=== PATIENT | male | born 1945 | race African-American/Black ===

== ENCOUNTER 2017-12-11 08:59 | Emergency (ER) | payer SELFPAY ==
[~2017-12-11] VITALS: Ht 165.1 cm; Wt 65.8 kg
[2017-12-11] MEDS ORDERED: METHYLPREDNISOLONE SOD SUCC 125 MG/2 ML VIAL IV STA (09:19)
[2017-12-11 09:41] LABS: BASOPHILS % 0.6 % (0.0-2.0); HEMATOCRIT. 40.4 % (42.0-52.0); HEMOGLOBIN. 13.4 g/dL (14.0-18.0); LYMPHOCYTES % 27.1 % (20.0-50.0); MEAN CORPUSCULAR HEMOGLOBIN 29.4 pg (28.0-32.0); MEAN CORPUSCULAR VOLUME 88.4 fL (80.0-94.0); MEAN PLATELET VOLUME 9.1 fl (7.4-10.4); MONOCYTES % 8.9 % (2.0-8.0); NEUTROPHILS % 62.4 % (40.0-76.0); PLATELET 216 x1000/uL (130-400); RED BLOOD CELL COUNT 4.57 mill/uL (4.7-6.1); RED CELL DISTRIBUTION WIDTH 13.7 % (11.6-14.6)
[2017-12-11 09:47] LABS: PROTHROMBIN TIME 10.8 sec (9.4-11.6)
[2017-12-11 09:51] LABS: CHLORIDE 103 mEq/L (98-107)
[2017-12-11 10:36] VITALS: BP 198/94
[2017-12-11] MEDS ORDERED: VALACYCLOVIR HCL 500MG TABLET PO SCH (21:00)
== END 2017-12-11 10:51 | disposition home or self-care (01) ==
LOC: ER 10:11
DX: G51.0 Bell's palsy (principal); I10 Essential (primary) hypertension
CPT/HCPCS: 36415; 70450; 80053; 85025; 85610; 96374; 99285; J2930